=== PATIENT | male | born 1990 | race Caucasian/White ===

== ENCOUNTER 2020-11-06 22:16 | Emergency (ER) | payer OTHER ==
[~2020-11-06] VITALS: Ht 170.2 cm; Wt 63.5 kg
[2020-11-06 22:31] VITALS: BP 136/82
[2020-11-06 22:58] LABS: URINE BILIRUBIN NEGATIVE (Negative); URINE BLOOD NEGATIVE (Negative); URINE CLARITY CLEAR; URINE COLOR YELLOW; URINE GLUCOSE-RANDOM NEGATIVE (Negative); URINE KETONES TRACE (Negative); URINE LEUKOCYTES-REFLEX NEGATIVE (Negative); URINE NITRITE-REFLEX NEGATIVE (Negative); URINE PROTEIN NEGATIVE (Negative); URINE SPECIFIC GRAVITY >= 1.030 (1.005-1.030); URINE UROBILINOGEN 0.2 E.U./dl (0.2-1.0)
[2020-11-06 23:09] LABS: ABSOLUTE BASOPHILS 0.1 thou/uL (0.0-0.2); ABSOLUTE EOSINOPHILS 0.3 thou/uL (0.0-0.7); ABSOLUTE MONOCYTES 0.7 thou/uL (0.0-1.2); ABSOLUTE NEUTROPHILS 3.1 thou/uL (1.6-8.1); BASOPHILS 1.4 %; EOSINOPHILS 4.3 %; HEMATOCRIT 39.6 % (42.0-52.0); HEMOGLOBIN 13.1 gm/dL (14.0-18.0); LYMPHOCYTES 41.3 %; MCH 29.2 pg (26.0-34.0); MCHC 33.1 g/dL (28.0-37.0); MONOCYTES 9.9 %; MPV 6.7 fl. (7.2-11.1); NUCLEATED RBCS 0 /100WBC; PLATELET COUNT* 389 thou/uL (150-400); POLYS 43.1 %; RDW-CV 13.9 % (10.5-14.5); WBC 7.3 thou/uL (4.0-11.0)
[2020-11-06 23:09] LABS: AMP/METHAMP Negative (Negative); BARBITURATES Negative (Negative); BENZODIAZEPINES Negative (Negative); COCAINE Negative (Negative); METHADONE Negative (Negative); OPIATES Negative (Negative); PCP Negative (Negative); THC POSITIVE (Negative)
[2020-11-06 23:19] LABS: CALCIUM 8.8 mg/dL (8.5-10.1); CREATININE 0.8 mg/dL (0.6-1.3); POTASSIUM 4.1 mmol/L (3.5-5.1)
[2020-11-06 23:24] LABS: ALBUMIN 3.3 g/dL (3.4-5.0); ALCOHOL < 10 mg/dL (<10); TOTAL BILIRUBIN 0.3 mg/dL (<0.1-1.0); TOTAL PROTEIN 6.9 g/dL (6.4-8.2)
[2020-11-06 23:25] LABS: ACETAMINOPHEN < 2 ug/mL (10-30)
== END 2020-11-06 23:45 | disposition still patient (30) ==
LOC: M.ERS 22:16
PROVIDERS: Emergency Medicine
DX: F20.0 Paranoid schizophrenia (principal); F19.10 Other psychoactive substance abuse, uncomplicated; Z91.013 Allergy to seafood